=== PATIENT | male | born 1950 | race Caucasian/White ===

== ENCOUNTER 2021-07-12 08:02 | Day surgery (SDC) | payer MEDICARE ==
[2021-07-12] MEDS ORDERED: Lidocaine 1% PF 5 ML VIAL ONE ×2 (08:31→08:42)
[2021-07-12] MEDS ORDERED: Sodium Bicarbonate 2.5 MEQ/5 ML VIAL ONE (08:31)
[2021-07-12] MEDS ORDERED: Albumin 25% 100 ML ONE ×2 (08:34)
[2021-07-12 11:54] LABS: Body Fluid Source Paracentesis Fluid; Clarity Hazy (Clear); Tube # EDTA
[2021-07-12 11:55] LABS: BF Color Yellow
[2021-07-12 12:36] LABS: Lymphocytes 39 %
[2021-07-12 12:37] LABS: BF Segmented Neutrophils 11 %; Cell Count Non Hematic 50 %
== END 2021-07-12 10:00 | disposition home or self-care (01) ==
LOC: CSHULT 08:02
PROVIDERS: ATTEND Physician Assistant Medical
DX: R18.8 Other ascites (principal); K74.60 Unspecified cirrhosis of liver
CPT/HCPCS: 49083; 82042; 84157; 87070; 87076; 87205; 89051; P9047; 88112

== ENCOUNTER 2021-08-19 18:48 | Emergency (ER) | payer MEDICARE ==
[2021-08-19 20:06] LABS: ALT (SGPT) 18 U/L (8-55); AST (SGOT) 29 U/L (5-34); Alkaline Phosphatase 127 U/L (40-110); Anion Gap 12 mmol/L (10-20); BUN (Urea Nitrogen) 15 mg/dL (8.4-25.7); Bilirubin, Total 0.7 mg/dL (0.2-1.2); Calc. Creatinine Clearance 0 mL/min (70-130); Calcium 8.1 mg/dL (7.8-10.44); Carbon Dioxide 24 mmol/L (23-31); Chloride 105 mmol/L (98-107); Globulin 2.1 g/dL (2.4-3.5); Glucose 83 mg/dL (80-115); Potassium 3.2 mmol/L (3.5-5.1); Protein, Total 5.1 g/dL (5.8-8.1); Sodium 138 mmol/L (136-145)
[2021-08-19 20:16] LABS: #Monocytes 0.7 10x3/uL (0.0-1.1); %Basophils 0.2 % (0.0-2.0); %Eosinophils 0.6 % (0.0-6.0); %Monocytes 13.9 % (0.0-10.0); %Neutrophils 76.3 % (40.0-75.0); Hemoglobin 10.7 g/dL (13.5-17.5); Mean Corpuscular HGB CONC 32.5 g/dL (32.0-36.0); Mean Corpuscular Hemoglobin 30.1 pg (27.0-33.0); Mean Corpuscular Volume 92.4 fl (81.2-95.1); Mean Platelet Volume 11.5 fl (7.4-10.4); Platelet Count 58 10x3/uL (150-450); RBC Distribution Width 14.8 % (11.5-14.5); Red Blood Cell (RBC) Count 3.56 10x6/uL (4.32-5.72); White Blood Cell (WBC) Count 5.3 10x3/uL (3.5-10.5)
[2021-08-19 20:33] LABS: Platelet Morphology Comment Appears Decreased; RBC Morphology Normal
== END 2021-08-19 21:14 | disposition left against medical advice (07) ==
LOC: CSHERS 18:48
DX: I95.9 Hypotension, unspecified (principal); R55 Syncope and collapse; R00.1 Bradycardia, unspecified; W19.XXXA Unspecified fall, initial encounter; I10 Essential (primary) hypertension; J44.9 Chronic obstructive pulmonary disease, unspecified; Z87.891 Personal history of nicotine dependence
CPT/HCPCS: 80053; 84484; 85025; 93005

== ENCOUNTER 2021-10-19 12:51 | Outpatient (CLI) | payer MEDICARE | END 2021-10-19 12:52 | disposition home or self-care (01) | LOC: CSHMRI 12:51 | PROVIDERS: ATTEND Internal Medicine Gastroenterology | DX: K70.31 Alcoholic cirrhosis of liver with ascites (principal); R79.89 Other specified abnormal findings of blood chemistry; I85.00 Esophageal varices without bleeding; K76.6 Portal hypertension; I81 Portal vein thrombosis; K80.20 Calculus of gallbladder without cholecystitis without obstruction; N28.1 Cyst of kidney, acquired | CPT/HCPCS: 74183; 82565 ==

== ENCOUNTER 2021-10-23 12:25 | Day surgery (SDC) | payer MEDICARE ==
[2021-10-23] MEDS ORDERED: Sodium Bicarbonate 2.5 MEQ/5 ML VIAL ONE (12:57)
[2021-10-23] MEDS ORDERED: Lidocaine 1% PF 5 ML VIAL ONE (12:57)
[2021-10-23] MEDS ORDERED: Albumin 25% 100 ML ONE (12:57)
[2021-10-23 13:16] LABS: INR-International Normal Ratio 1.2; PTT 29.3 sec (22.0-33.0); Prothrombin Time 12.7 sec (9.5-12.1)
[2021-10-23 13:21] VITALS: TEMP 97.9
[2021-10-23 13:23] LABS: #Eosinphils 0.1 10x3/uL (0.0-0.5); #Monocytes 0.5 10x3/uL (0.0-1.1); #Neutrophils 3.6 10x3/uL (1.5-8.4); %Basophils 0.2 % (0.0-2.0); %Eosinophils 1.1 % (0.0-6.0); %Lymphocytes 10.1 % (18.0-47.0); %Monocytes 10.1 % (0.0-10.0); %Neutrophils 78.1 % (40.0-75.0); Hemoglobin 11.6 g/dL (13.5-17.5); Mean Corpuscular HGB CONC 32.3 g/dL (32.0-36.0); Mean Corpuscular Hemoglobin 29.9 pg (27.0-33.0); Mean Corpuscular Volume 92.5 fl (81.2-95.1); Mean Platelet Volume 11.2 fl (7.4-10.4); Platelet Count 84 10x3/uL (150-450); RBC Distribution Width 15.9 % (11.5-14.5); Red Blood Cell (RBC) Count 3.88 10x6/uL (4.32-5.72); White Blood Cell (WBC) Count 4.7 10x3/uL (3.5-10.5)
== END 2021-10-23 14:08 | disposition home or self-care (01) ==
LOC: CSHULT 12:25
PROVIDERS: ATTEND Internal Medicine Gastroenterology
DX: K70.31 Alcoholic cirrhosis of liver with ascites (principal); R79.89 Other specified abnormal findings of blood chemistry; I85.00 Esophageal varices without bleeding
CPT/HCPCS: 49083; 85025; 85610; 85730; P9047

== ENCOUNTER 2021-11-24 10:41 | Outpatient (CLI) | payer MEDICARE ==
[2021-11-24] MEDS ORDERED: Lidocaine 1% PF 5 ML VIAL ONE (11:53)
[2021-11-24] MEDS ORDERED: Albumin 25% 200 ML ONE (11:53)
[2021-11-24] MEDS ORDERED: Sodium Bicarbonate 2.5 MEQ/5 ML VIAL ONE (11:54)
[2021-11-24 12:05] VITALS: BP 129/60; TEMP 98.4
[2021-11-24 12:08] LABS: #Eosinphils 0.1 10x3/uL (0.0-0.5); #Monocytes 0.6 10x3/uL (0.0-1.1); #Neutrophils 3.6 10x3/uL (1.5-8.4); %Basophils 0.4 % (0.0-2.0); %Eosinophils 1.4 % (0.0-6.0); %Lymphocytes 11.4 % (18.0-47.0); %Monocytes 12.8 % (0.0-10.0); %Neutrophils 73.8 % (40.0-75.0); Hemoglobin 11.6 g/dL (13.5-17.5); Mean Corpuscular Hemoglobin 30.8 pg (27.0-33.0); Mean Corpuscular Volume 90.5 fl (81.2-95.1); Mean Platelet Volume 11.1 fl (7.4-10.4); Platelet Count 82 10x3/uL (150-450); RBC Distribution Width 15.8 % (11.5-14.5); Red Blood Cell (RBC) Count 3.77 10x6/uL (4.32-5.72); White Blood Cell (WBC) Count 4.8 10x3/uL (3.5-10.5)
[2021-11-24 12:18] LABS: INR-International Normal Ratio 1.2; PTT 28.8 sec (22.0-33.0); Prothrombin Time 12.9 sec (9.5-12.1)
== END 2021-11-24 13:03 | disposition home or self-care (01) ==
LOC: CSHULT 10:41
PROVIDERS: ATTEND Internal Medicine Gastroenterology
DX: K70.31 Alcoholic cirrhosis of liver with ascites (principal); R79.89 Other specified abnormal findings of blood chemistry; I85.00 Esophageal varices without bleeding
CPT/HCPCS: 49083; 85025; 85610; 85730; P9047

== ENCOUNTER 2021-12-11 10:07 | Day surgery (SDC) | payer MEDICARE ==
[2021-12-11] MEDS ORDERED: Lidocaine 1% PF 5 ML VIAL ONE (10:44)
[2021-12-11] MEDS ORDERED: Sodium Bicarbonate 2.5 MEQ/5 ML VIAL ONE (10:44)
[2021-12-11] MEDS ORDERED: Albumin 25% 100 ML ONE (10:44)
[2021-12-11 10:58] LABS: #Eosinphils 0.1 10x3/uL (0.0-0.5); #Monocytes 0.8 10x3/uL (0.0-1.1); #Neutrophils 3.6 10x3/uL (1.5-8.4); %Basophils 0.4 % (0.0-2.0); %Eosinophils 1.5 % (0.0-6.0); %Lymphocytes 13.3 % (18.0-47.0); %Monocytes 14.6 % (0.0-10.0); Hemoglobin 11.4 g/dL (13.5-17.5); Mean Corpuscular HGB CONC 33.2 g/dL (32.0-36.0); Mean Corpuscular Hemoglobin 30.2 pg (27.0-33.0); Mean Platelet Volume 11.6 fl (7.4-10.4); Platelet Count 81 10x3/uL (150-450); Red Blood Cell (RBC) Count 3.77 10x6/uL (4.32-5.72); White Blood Cell (WBC) Count 5.2 10x3/uL (3.5-10.5)
[2021-12-11 11:07] LABS: INR-International Normal Ratio 1.2; PTT 28.9 sec (22.0-33.0); Prothrombin Time 12.9 sec (9.5-12.1)
[2021-12-11 12:53] VITALS: TEMP 98
[2021-12-11 13:13] LABS: Body Fluid Source Paracentesis Fluid; Tube # EDTA
[2021-12-11 13:14] LABS: BF Color Yellow; Clarity Hazy (Clear)
[2021-12-11 14:43] LABS: BF Segmented Neutrophils 16 %; Cell Count Non Hematic 68 %; Lymphocytes 16 %
== END 2021-12-11 11:40 | disposition home or self-care (01) ==
LOC: CSHULT 10:07
PROVIDERS: ATTEND Internal Medicine Gastroenterology
DX: K70.31 Alcoholic cirrhosis of liver with ascites (principal); N62 Hypertrophy of breast; I85.00 Esophageal varices without bleeding; K76.9 Liver disease, unspecified
CPT/HCPCS: 49083; 85025; 85610; 85730; 89051; P9047

== ENCOUNTER 2021-12-21 13:30 | Emergency (ER) | payer MEDICARE ==
[2021-12-21 15:19] LABS: #Neutrophils 2.6 10x3/uL (1.5-8.4); %Neutrophils 73.1 % (40.0-75.0)
[2021-12-21 15:20] LABS: ALT (SGPT) 15 U/L (8-55); AST (SGOT) 35 U/L (5-34); Albumin 2.8 g/dL (3.4-4.8); Alkaline Phosphatase 154 U/L (40-110); Anion Gap 13 mmol/L (10-20); BUN (Urea Nitrogen) 16 mg/dL (8.4-25.7); Bilirubin, Total 0.8 mg/dL (0.2-1.2); Calc. Creatinine Clearance 0 mL/min (70-130); Calcium 8.1 mg/dL (7.8-10.44); Carbon Dioxide 22 mmol/L (23-31); Chloride 106 mmol/L (98-107); Globulin 1.8 g/dL (2.4-3.5); Glucose 95 mg/dL (80-115); Potassium 4.3 mmol/L (3.5-5.1); Protein, Total 4.6 g/dL (5.8-8.1); Sodium 137 mmol/L (136-145)
[2021-12-21 15:24] LABS: Bilirubin Neg (Negative); Blood, Urine Negative (Negative); Glucose, Urine (Dipstick) Normal (Negative); Ketone, Urine Negative (Negative); Leukocyte Negative (Negative); Nitrite Negative (Negative); Protein, Urine (Dipstick) Negative (Neg-Trace); Specific Gravity, Urine 1.015 (1.002-1.036); Urobilinogen Normal mg/dL (Less than 2)
[2021-12-21 15:27] LABS: Clarity Clear (Clear)
[2021-12-21 15:31] LABS: Hemoglobin 10.2 g/dL (13.5-17.5); Mean Corpuscular Hemoglobin 30.3 pg (27.0-33.0); Mean Corpuscular Volume 91.7 fl (81.2-95.1); Mean Platelet Volume 11.5 fl (7.4-10.4); Platelet Count 71 10x3/uL (150-450); RBC Distribution Width 15.8 % (11.5-14.5); Red Blood Cell (RBC) Count 3.37 10x6/uL (4.32-5.72); White Blood Cell (WBC) Count 3.6 10x3/uL (3.5-10.5)
[2021-12-21 16:31] LABS: Band 3 % (5-11); Eosinophils 1 % (0-10); Monocytes 15 % (0-10)
[2021-12-21 16:32] LABS: Lymphocytes 6 % (21-51); Neutrophil 73 % (42-75); Reactive Lymphocytes 2 % (0-10)
[2021-12-21 16:33] LABS: Anisocytosis SLIGHT = 6-15 cells (100X) (0-5/hpf); Elliptocytes SLIGHT = 2-5 cells (100X) (0-1/hpf); Ovalocytes MODERATE= 6-15 cells (100X) (0-1/hpf); Poikilocytosis SLIGHT = 6-15 cells (100X) (0-5/hpf)
[2021-12-21 16:34] LABS: Large Platelets SLIGHT; Platelet Morphology Comment Appears Decreased
[2021-12-21 16:35] LABS: MDiff Complete? YES
== END 2021-12-21 16:52 | disposition home or self-care (01) ==
LOC: CSHERS 13:30
DX: R33.9 Retention of urine, unspecified (principal); R18.8 Other ascites; J44.9 Chronic obstructive pulmonary disease, unspecified; I10 Essential (primary) hypertension; Z87.891 Personal history of nicotine dependence
CPT/HCPCS: 36415; 51702; 71045; 80053; 81003; 82140; 84484; 85025; 93005

== ENCOUNTER 2021-12-25 10:17 | Day surgery (SDC) | payer MEDICARE ==
[2021-12-25 10:04] VITALS: BMI 26.5
[~2021-12-25 10:17] MED LIST: Albumin 25% 200 ML ONE; Lidocaine 1% PF 5 ML VIAL ONE; Sodium Bicarbonate 2.5 MEQ/5 ML VIAL ONE
== END 2021-12-25 11:48 | disposition home or self-care (01) ==
LOC: CSHULT 10:17
PROVIDERS: ATTEND Internal Medicine Gastroenterology
DX: K70.31 Alcoholic cirrhosis of liver with ascites (principal); N62 Hypertrophy of breast; I85.00 Esophageal varices without bleeding; K76.9 Liver disease, unspecified; Z79.899 Other long term (current) drug therapy; Z79.82 Long term (current) use of aspirin; Z87.891 Personal history of nicotine dependence
CPT/HCPCS: 49083; P9047

== ENCOUNTER 2021-12-29 23:57 | Emergency (ER) | payer MEDICARE | END 2021-12-30 00:56 | disposition home or self-care (01) | LOC: CSHERS 23:57 | DX: R31.9 Hematuria, unspecified (principal); J44.9 Chronic obstructive pulmonary disease, unspecified; I10 Essential (primary) hypertension; Z87.891 Personal history of nicotine dependence | CPT/HCPCS: 99283 ==

== ENCOUNTER → 2022-01-08 | Day surgery (SDC) | payer MEDICARE ==
[~2022-01-08] MED LIST changes: +Albumin 25% 0 ML ONE; +Albumin 25% 100 ML ONE; -Albumin 25% 200 ML ONE
== END ==
LOC: CSHULT 10:16
PROVIDERS: ATTEND Internal Medicine Gastroenterology
DX: K70.31 Alcoholic cirrhosis of liver with ascites (principal); R79.89 Other specified abnormal findings of blood chemistry
CPT/HCPCS: 49083; P9047

== ENCOUNTER 2022-01-22 10:20 | Day surgery (SDC) | payer MEDICARE ==
[2022-01-22] MEDS ORDERED: Albumin 25% 100 ML ONE (11:05)
[2022-01-22] MEDS ORDERED: Lidocaine 1% PF 5 ML VIAL ONE (11:05)
[2022-01-22] MEDS ORDERED: Sodium Bicarbonate 2.5 MEQ/5 ML VIAL ONE (11:05)
[2022-01-22 11:28] LABS: Hemoglobin 11.1 g/dL (13.5-17.5); Mean Corpuscular HGB CONC 32.6 g/dL (32.0-36.0); Mean Corpuscular Hemoglobin 29.9 pg (27.0-33.0); Mean Corpuscular Volume 91.6 fl (81.2-95.1); Mean Platelet Volume 11.3 fl (7.4-10.4); Platelet Count 74 10x3/uL (150-450); RBC Distribution Width 15.7 % (11.5-14.5); Red Blood Cell (RBC) Count 3.71 10x6/uL (4.32-5.72); White Blood Cell (WBC) Count 3.9 10x3/uL (3.5-10.5)
[2022-01-22 11:33] LABS: INR-International Normal Ratio 1.2; PTT 29.9 sec (22.0-33.0); Prothrombin Time 12.7 sec (9.5-12.1)
== END 2022-01-22 11:54 | disposition home or self-care (01) ==
LOC: CSHULT 10:20
PROVIDERS: ATTEND Internal Medicine Gastroenterology
PROC: 0W9G3ZZ Drainage of Peritoneal Cavity, Percutaneous Approach (ICD-10-PCS; principal; 2022-01-22)
DX: K70.31 Alcoholic cirrhosis of liver with ascites (principal); Z79.82 Long term (current) use of aspirin; Z79.899 Other long term (current) drug therapy
CPT/HCPCS: 49083; 85027; 85610; 85730; P9047

== ENCOUNTER → 2022-02-05 | Day surgery (SDC) | payer MEDICARE ==
[~2022-02-05] MED LIST changes: -Albumin 25% 0 ML ONE; -Albumin 25% 100 ML ONE
[2022-02-05 11:34] VITALS: BP 146/68; TEMP 98.1
== END ==
LOC: CSHULT 10:20
PROVIDERS: ATTEND Internal Medicine Gastroenterology
PROC: 0W9G3ZZ Drainage of Peritoneal Cavity, Percutaneous Approach (ICD-10-PCS; principal; 2022-02-05)
DX: R18.8 Other ascites (principal)
CPT/HCPCS: 49083

== ENCOUNTER 2022-02-20 10:10 | Day surgery (SDC) | payer MEDICARE ==
[2022-02-20] MEDS ORDERED: Albumin 25% 100 ML ONE ×2 (10:46)
[2022-02-20] MEDS ORDERED: Sodium Bicarbonate 2.5 MEQ/5 ML VIAL ONE (10:46)
[2022-02-20] MEDS ORDERED: Lidocaine 1% PF 5 ML VIAL ONE (10:46)
[2022-02-20 11:42] VITALS: BP 166/74; TEMP 98.2
== END 2022-02-20 12:17 | disposition home or self-care (01) ==
LOC: CSHULT 10:10
PROVIDERS: ATTEND Internal Medicine Gastroenterology
PROC: 0W9G3ZZ Drainage of Peritoneal Cavity, Percutaneous Approach (ICD-10-PCS; principal; 2022-02-20)
DX: K70.31 Alcoholic cirrhosis of liver with ascites (principal)
CPT/HCPCS: 49083; P9047

== ENCOUNTER 2022-03-05 10:11 | Day surgery (SDC) | payer MEDICARE ==
[2022-03-05 10:42] VITALS: BP 155/76; TEMP 98.1
[2022-03-05] MEDS ORDERED: Albumin 25% 100 ML ONE (10:48)
[2022-03-05] MEDS ORDERED: Lidocaine 1% PF 5 ML VIAL ONE (10:48)
[2022-03-05] MEDS ORDERED: Sodium Bicarbonate 2.5 MEQ/5 ML VIAL ONE (10:48)
[2022-03-05 11:06] LABS: INR-International Normal Ratio 1.2; PTT 25.3 sec (22.0-33.0); Prothrombin Time 12.7 sec (9.5-12.1)
[2022-03-05 11:07] LABS: Hemoglobin 11.3 g/dL (13.5-17.5); Mean Corpuscular HGB CONC 32.4 g/dL (32.0-36.0); Mean Corpuscular Hemoglobin 30.2 pg (27.0-33.0); Mean Corpuscular Volume 93.3 fl (81.2-95.1); Mean Platelet Volume 11.9 fl (7.4-10.4); RBC Distribution Width 17.2 % (11.5-14.5); Red Blood Cell (RBC) Count 3.74 10x6/uL (4.32-5.72); White Blood Cell (WBC) Count 6.6 10x3/uL (3.5-10.5)
[2022-03-05 11:08] LABS: Platelet Count 51 10x3/uL (150-450)
== END 2022-03-05 11:38 | disposition home or self-care (01) ==
LOC: CSHULT 10:11
PROVIDERS: ATTEND Internal Medicine Gastroenterology
PROC: 0W9G3ZZ Drainage of Peritoneal Cavity, Percutaneous Approach (ICD-10-PCS; principal; 2022-03-05)
DX: R18.8 Other ascites (principal)
CPT/HCPCS: 49083; 85027; 85610; 85730; P9047

== ENCOUNTER 2022-03-12 00:33 | Emergency (ER) | payer MEDICARE ==
[2022-03-12] MEDS ORDERED: Ondansetron PF 4 MG/2 ML Vial ONE (01:10)
[2022-03-12] MEDS ORDERED: Morphine 4 MG/ML VIAL ONE ×2 (01:10→05:00)
[2022-03-12 01:48] LABS: Bilirubin Neg (Negative); Blood, Urine Negative (Negative); Clarity Clear (Clear); Glucose, Urine (Dipstick) Normal (Negative); Ketone, Urine 5 mg/dL (Negative); Leukocyte Negative (Negative); Nitrite Negative (Negative); Protein, Urine (Dipstick) 15 mg/dl (Neg-Trace); Specific Gravity, Urine 1.015 (1.002-1.036)
[2022-03-12 01:57] LABS: ALT (SGPT) 30 U/L (8-55); AST (SGOT) 38 U/L (5-34); Albumin 2.9 g/dL (3.4-4.8); Alkaline Phosphatase 188 U/L (40-110); Anion Gap 15 mmol/L (10-20); BUN (Urea Nitrogen) 15 mg/dL (8.4-25.7); Bilirubin, Total 1.2 mg/dL (0.2-1.2); CK (CPK) 84 U/L (30-200); Calc. Creatinine Clearance 0 mL/min (70-130); Carbon Dioxide 20 mmol/L (23-31); Chloride 105 mmol/L (98-107); Estimated GFR 61; Globulin 1.8 g/dL (2.4-3.5); Glucose 207 mg/dL (83-110); Lipase 12 U/L (8-78); Potassium 4.1 mmol/L (3.5-5.1); Protein, Total 4.7 g/dL (5.8-8.1); Sodium 136 mmol/L (136-145)
[2022-03-12 02:37] LABS: #Eosinphils 0.1 10x3/uL (0.0-0.5); #Monocytes 0.6 10x3/uL (0.0-1.1); #Neutrophils 5.1 10x3/uL (1.5-8.4); %Basophils 0.2 % (0.0-2.0); %Eosinophils 1.1 % (0.0-6.0); %Lymphocytes 5.5 % (18.0-47.0); %Monocytes 9.7 % (0.0-10.0); %Neutrophils 82.4 % (40.0-75.0); Hemoglobin 10.7 g/dL (13.5-17.5); Mean Corpuscular Hemoglobin 31.7 pg (27.0-33.0); Mean Corpuscular Volume 93.2 fl (81.2-95.1); Mean Platelet Volume 12.5 fl (7.4-10.4); Platelet Count 46 10x3/uL (150-450); RBC Distribution Width 17.2 % (11.5-14.5); Red Blood Cell (RBC) Count 3.38 10x6/uL (4.32-5.72); White Blood Cell (WBC) Count 6.2 10x3/uL (3.5-10.5)
[2022-03-12 06:04] LABS: INR-International Normal Ratio 1.1; PTT 27.4 sec (22.0-33.0)
[2022-03-12 06:10] LABS: SARS-CoV-2 NAA Rapid Test Not Detected (NotDetected)
[2022-03-12] MEDS ORDERED: Piperacillin/Tazobactam 4.5 GM VIAL ONE (06:18)
[2022-03-12] MEDS ORDERED: Iopamidol 300 61% 100 ML VIAL FS ONE (12:43)
== END 2022-03-12 08:22 | disposition short-term general hospital (02) ==
LOC: CSHERS 00:33
DX: K74.69 Other cirrhosis of liver (principal); Z87.891 Personal history of nicotine dependence; I10 Essential (primary) hypertension; Z20.822 Contact with and (suspected) exposure to COVID-19
CPT/HCPCS: 36415; 74177; 80053; 81003; 82550; 83690; 84484; 85025; 85610; 85730; 93005; J2270; J2405; J2543; U0002

== ENCOUNTER 2022-03-19 10:29 | Day surgery (SDC) | payer MEDICARE ==
[2022-03-19] MEDS ORDERED: Albumin 25% 100 ML ONE (11:04)
[2022-03-19] MEDS ORDERED: Lidocaine 1% PF 5 ML VIAL ONE (11:04)
[2022-03-19] MEDS ORDERED: Sodium Bicarbonate 2.5 MEQ/5 ML VIAL ONE (11:04)
[2022-03-19 11:14] VITALS: BP 121/82; TEMP 98.2
== END 2022-03-19 12:10 | disposition home or self-care (01) ==
LOC: CSHULT 10:29
PROVIDERS: ATTEND Internal Medicine Gastroenterology
PROC: 0W9G3ZZ Drainage of Peritoneal Cavity, Percutaneous Approach (ICD-10-PCS; principal; 2022-03-19)
DX: R18.8 Other ascites (principal); K74.60 Unspecified cirrhosis of liver
CPT/HCPCS: 49083; P9047

== ENCOUNTER 2022-04-02 10:22 | Day surgery (SDC) | payer MEDICARE ==
[2022-04-02] MEDS ORDERED: Lidocaine 1% PF 5 ML VIAL ONE (10:33)
[2022-04-02] MEDS ORDERED: Albumin 25% 100 ML ONE (10:33)
[2022-04-02] MEDS ORDERED: Sodium Bicarbonate 2.5 MEQ/5 ML VIAL ONE (10:33)
[2022-04-02 10:46] VITALS: BP 166/81; TEMP 97.4
== END 2022-04-02 11:40 | disposition home or self-care (01) ==
LOC: CSHULT 10:22
PROVIDERS: ATTEND Internal Medicine Gastroenterology
PROC: 0W9G3ZZ Drainage of Peritoneal Cavity, Percutaneous Approach (ICD-10-PCS; principal; 2022-04-02)
DX: R18.8 Other ascites (principal)
CPT/HCPCS: 49083; P9047

== ENCOUNTER 2022-04-16 10:10 | Day surgery (SDC) | payer MEDICARE ==
[2022-04-12 07:38] VITALS: BMI 26.5
[2022-04-16] MEDS ORDERED: Albumin 25% 100 ML ONE (10:39)
[2022-04-16] MEDS ORDERED: Sodium Bicarbonate 2.5 MEQ/5 ML VIAL ONE (10:44)
[2022-04-16] MEDS ORDERED: Lidocaine 1% PF 5 ML VIAL ONE (10:44)
[2022-04-16 10:46] VITALS: BP 154/72; TEMP 97.4
[2022-04-16 10:47] LABS: #Eosinphils 0.1 10x3/uL (0.0-0.5); #Monocytes 0.6 10x3/uL (0.0-1.1); %Basophils 0.2 % (0.0-2.0); %Eosinophils 2.2 % (0.0-6.0); %Lymphocytes 12.1 % (18.0-47.0); %Monocytes 11.3 % (0.0-10.0); %Neutrophils 73.3 % (40.0-75.0); Hemoglobin 10.5 g/dL (13.5-17.5); Mean Corpuscular HGB CONC 31.7 g/dL (32.0-36.0); Mean Corpuscular Hemoglobin 31.4 pg (27.0-33.0); Mean Corpuscular Volume 99.1 fl (81.2-95.1); Mean Platelet Volume 11.5 fl (7.4-10.4); Platelet Count 69 10x3/uL (150-450); RBC Distribution Width 16.7 % (11.5-14.5); Red Blood Cell (RBC) Count 3.34 10x6/uL (4.32-5.72); White Blood Cell (WBC) Count 5.5 10x3/uL (3.5-10.5)
[2022-04-16 10:51] LABS: INR-International Normal Ratio 1.3; Prothrombin Time 14.4 sec (9.5-12.1)
== END 2022-04-16 11:45 | disposition home or self-care (01) ==
LOC: CSHULT 10:10
PROVIDERS: ATTEND Internal Medicine Gastroenterology
DX: R18.8 Other ascites (principal)
CPT/HCPCS: 49083; 85025; 85610; P9047

== ENCOUNTER 2022-04-30 10:14 | Day surgery (SDC) | payer MEDICARE ==
[2022-04-30] MEDS ORDERED: Lidocaine 1% PF 5 ML VIAL ONE (10:30)
[2022-04-30] MEDS ORDERED: Sodium Bicarbonate 2.5 MEQ/5 ML VIAL ONE (10:30)
[2022-04-30] MEDS ORDERED: Albumin 25% 0 ML ONE (10:31)
[2022-04-30 10:42] VITALS: BP 144/69; TEMP 97.8
[2022-04-30 11:05] LABS: ALT (SGPT) 12 U/L (8-55); AST (SGOT) 36 U/L (5-34); Albumin 2.6 g/dL (3.4-4.8); Alkaline Phosphatase 210 U/L (40-110); Anion Gap 13 mmol/L (10-20); BUN (Urea Nitrogen) 15 mg/dL (8.4-25.7); Bilirubin, Total 1.5 mg/dL (0.2-1.2); Calc. Creatinine Clearance 59 mL/min (70-130); Calcium 8.1 mg/dL (7.8-10.44); Carbon Dioxide 24 mmol/L (23-31); Chloride 100 mmol/L (98-107); Estimated GFR 56; Globulin 2.3 g/dL (2.4-3.5); Glucose 153 mg/dL (83-110); Potassium 4.8 mmol/L (3.5-5.1); Protein, Total 4.9 g/dL (5.8-8.1); Sodium 132 mmol/L (136-145)
[2022-04-30] MEDS ORDERED: Albumin 25% 100 ML ONE (11:16)
== END 2022-04-30 11:29 | disposition home or self-care (01) ==
LOC: CSHULT 10:14
PROVIDERS: ATTEND Internal Medicine Gastroenterology
PROC: 0W9G3ZZ Drainage of Peritoneal Cavity, Percutaneous Approach (ICD-10-PCS; principal; 2022-04-30)
DX: K70.31 Alcoholic cirrhosis of liver with ascites (principal)
CPT/HCPCS: 49083; 80053; 82105; P9047

== ENCOUNTER 2022-05-14 09:48 | Day surgery (SDC) | payer MEDICARE ==
[2022-05-14] MEDS ORDERED: Albumin 25% 200 ML ONE (10:25)
[2022-05-14] MEDS ORDERED: Sodium Bicarbonate 2.5 MEQ/5 ML VIAL ONE (10:25)
[2022-05-14 10:32] VITALS: BP 149/73; TEMP 97.2; BMI 26.4
== END 2022-05-14 11:49 | disposition home or self-care (01) ==
LOC: CSHULT 09:48
PROVIDERS: ATTEND Internal Medicine Gastroenterology
PROC: 0W9G3ZZ Drainage of Peritoneal Cavity, Percutaneous Approach (ICD-10-PCS; principal; 2022-05-14)
DX: R18.8 Other ascites (principal)
CPT/HCPCS: 49083; P9047

== ENCOUNTER 2022-05-28 09:52 | Day surgery (SDC) | payer MEDICARE ==
[2022-05-28] MEDS ORDERED: Albumin 25% 0 ML ONE (10:49)
[2022-05-28] MEDS ORDERED: Albumin 25% 100 ML ONE (10:49)
[2022-05-28] MEDS ORDERED: Sodium Bicarbonate 2.5 MEQ/5 ML VIAL ONE (10:49)
[2022-05-28] MEDS ORDERED: Lidocaine 4% PF 5 ML AMP ONE (10:50)
[2022-05-28 11:18] VITALS: BP 135/72; TEMP 98.8
[2022-05-28 11:55] LABS: ALT (SGPT) 17 U/L (8-55); AST (SGOT) 41 U/L (5-34); Albumin 2.7 g/dL (3.4-4.8); Alkaline Phosphatase 248 U/L (40-110); Anion Gap 11 mmol/L (10-20); BUN (Urea Nitrogen) 27 mg/dL (8.4-25.7); Calc. Creatinine Clearance 0 mL/min (70-130); Calcium 8.4 mg/dL (7.8-10.44); Carbon Dioxide 24 mmol/L (23-31); Chloride 104 mmol/L (98-107); Estimated GFR 47; Globulin 2.2 g/dL (2.4-3.5); Glucose 127 mg/dL (83-110); INR-International Normal Ratio 1.2; PTT 30.4 sec (22.0-33.0); Potassium 4.4 mmol/L (3.5-5.1); Protein, Total 4.9 g/dL (5.8-8.1); Prothrombin Time 12.4 sec (9.5-12.1); Sodium 135 mmol/L (136-145)
[2022-05-28 11:56] LABS: Mean Platelet Volume 11.8 fl (7.4-10.4); Platelet Count 88 10x3/uL (150-450)
[2022-05-28 11:57] LABS: Hemoglobin 8.5 g/dL (13.5-17.5); Mean Corpuscular HGB CONC 32.4 g/dL (32.0-36.0); Mean Corpuscular Hemoglobin 30.7 pg (27.0-33.0); Mean Corpuscular Volume 94.6 fl (81.2-95.1); RBC Distribution Width 15.6 % (11.5-14.5); Red Blood Cell (RBC) Count 2.77 10x6/uL (4.32-5.72)
[2022-05-28 13:08] LABS: MDiff Complete? YES
[2022-05-28 13:11] LABS: Eosinophils 7 % (0-10); Lymphocytes 10 % (21-51); Monocytes 14 % (0-10); Neutrophil 69 % (42-75)
[2022-05-28 13:13] LABS: Platelet Morphology Comment Appears Decreased
[2022-05-28 13:22] LABS: Ovalocytes SLIGHT = 2-5 cells (100X) (0-1/hpf)
== END 2022-05-28 11:50 | disposition home or self-care (01) ==
LOC: CSHULT 09:52
PROVIDERS: ATTEND Internal Medicine Gastroenterology
PROC: 0W9G30Z Drainage of Peritoneal Cavity with Drainage Device, Percutaneous Approach (ICD-10-PCS; principal; 2022-05-28)
DX: R18.8 Other ascites (principal)
CPT/HCPCS: 49083; 80053; 85025; 85610; 85730; P9047

== ENCOUNTER 2022-06-11 10:02 | Day surgery (SDC) | payer MEDICARE ==
[2022-06-11] MEDS ORDERED: Lidocaine 1% PF 5 ML VIAL ONE (10:31)
[2022-06-11] MEDS ORDERED: Sodium Bicarbonate 2.5 MEQ/5 ML VIAL ONE (10:31)
[2022-06-11] MEDS ORDERED: Albumin 25% 100 ML ONE (11:12)
[2022-06-11 13:05] VITALS: BP 120/64; TEMP 97.4
== END 2022-06-11 12:00 | disposition home or self-care (01) ==
LOC: CSHULT 10:02
PROVIDERS: ATTEND Internal Medicine Gastroenterology
PROC: 0W9G30Z Drainage of Peritoneal Cavity with Drainage Device, Percutaneous Approach (ICD-10-PCS; principal; 2022-06-11)
DX: R18.8 Other ascites (principal)
CPT/HCPCS: 49083; P9047

== ENCOUNTER → 2022-07-09 | Day surgery (SDC) | payer MEDICARE ==
[~2022-07-09] MED LIST changes: +Albumin 25% 100 ML ONE
== END ==
LOC: CSHULT 10:17
PROVIDERS: ATTEND Internal Medicine Gastroenterology
PROC: 0W9G3ZZ Drainage of Peritoneal Cavity, Percutaneous Approach (ICD-10-PCS; principal; 2022-07-09)
DX: K70.31 Alcoholic cirrhosis of liver with ascites (principal); R79.89 Other specified abnormal findings of blood chemistry; I85.00 Esophageal varices without bleeding; I10 Essential (primary) hypertension; J44.9 Chronic obstructive pulmonary disease, unspecified
CPT/HCPCS: 49083; P9047

== ENCOUNTER 2022-07-10 23:45 | Inpatient (IN) | payer MEDICARE ==
[2022-07-11 00:26] LABS: Mean Corpuscular HGB CONC 33.2 g/dL (32.0-36.0); Mean Corpuscular Hemoglobin 30.7 pg (27.0-33.0); Mean Corpuscular Volume 92.5 fl (81.2-95.1); Mean Platelet Volume 11.5 fl (7.4-10.4); Platelet Count 67 10x3/uL (150-450); RBC Distribution Width 16.9 % (11.5-14.5); Red Blood Cell (RBC) Count 2.28 10x6/uL (4.32-5.72); White Blood Cell (WBC) Count 2.9 10x3/uL (3.5-10.5)
[2022-07-11 00:32] LABS: MDiff Complete? YES; Platelet Morphology Comment Appears Decreased
[2022-07-11 00:45] LABS: ALT (SGPT) 30 U/L (8-55); AST (SGOT) 89 U/L (5-34); Albumin 2.9 g/dL (3.4-4.8); Alkaline Phosphatase 214 U/L (40-110); Anion Gap 17 mmol/L (10-20); BUN (Urea Nitrogen) 80 mg/dL (8.4-25.7); Bilirubin, Total 0.5 mg/dL (0.2-1.2); Calc. Creatinine Clearance 0 mL/min (70-130); Calcium 7.8 mg/dL (7.8-10.44); Estimated GFR 8; Globulin 1.9 g/dL (2.4-3.5); Glucose 207 mg/dL (83-110); Potassium 4.7 mmol/L (3.5-5.1); Protein, Total 4.8 g/dL (5.8-8.1)
[2022-07-11 00:48] LABS: Carbon Dioxide 17 mmol/L (23-31); Chloride 105 mmol/L (98-107); Sodium 134 mmol/L (136-145)
[2022-07-11] MEDS ORDERED: Octreotide Acetate 1,250 MCG in Sodium Chloride 0.9% 250 ML 250 ML IVPB SCH (01:30)
[2022-07-11] MEDS ORDERED: Pantoprazole 40 MG VIAL ONE (01:38)
[2022-07-11 02:41] VITALS: BMI 23.0
[2022-07-11 03:27] LABS: Band 3 % (5-11); Lymphocytes 6 % (21-51); Monocytes 4 % (0-10); Neutrophil 87 % (42-75)
[2022-07-11] MEDS ORDERED: Albuterol Sulfate 2.5 mg/3 ml Neb NEB PRN (05:12)
[2022-07-11] MEDS ORDERED: Sodium Chloride 0.9% 1,000 ML IV SCH (05:30)
[2022-07-11 05:42] LABS: Hemoglobin 6.9 g/dL (13.5-17.5); Mean Corpuscular HGB CONC 33.5 g/dL (32.0-36.0); Mean Corpuscular Hemoglobin 30.9 pg (27.0-33.0); Mean Corpuscular Volume 92.4 fl (81.2-95.1); Mean Platelet Volume 12.3 fl (7.4-10.4); Platelet Count 57 10x3/uL (150-450); RBC Distribution Width 16.9 % (11.5-14.5); Red Blood Cell (RBC) Count 2.23 10x6/uL (4.32-5.72); White Blood Cell (WBC) Count 2.1 10x3/uL (3.5-10.5)
[2022-07-11] MEDS: Albumin 25% 25 GM/100 ML BOT IVPB SCH ×3 (05:47→20:59)
[2022-07-11] MEDS: Midodrine HCl 2.5 MG TAB PO SCH ×3 (05:49→18:17)
[2022-07-11 06:19] LABS: MDiff Complete? YES; Platelet Morphology Comment Appears Decreased
[2022-07-11 06:22] LABS: Band 2 % (5-11); Lymphocytes 7 % (21-51); Monocytes 2 % (0-10); Neutrophil 89 % (42-75)
[2022-07-11 08:03] LABS: Bilirubin Neg (Negative); Blood, Urine Negative (Negative); Clarity Clear (Clear); Glucose, Urine (Dipstick) Normal (Negative); Ketone, Urine Negative (Negative); Leukocyte Negative (Negative); Nitrite Negative (Negative); Protein, Urine (Dipstick) Negative (Neg-Trace); Specific Gravity, Urine 1.015 (1.005-1.030); Urobilinogen Normal mg/dL (Less than 2)
[2022-07-11 08:23] LABS: Bacteria/HPF Rare-Few HPF (None Seen); Epithelial Cast 0-3 LPF (None Seen); RBC/HPF 0-3 HPF (0-3); Squamous Epithelial 0-3 HPF (0-3); WBC/HPF 0-3 HPF (0-3); White Blood Cell Cast 0-3 LPF (None Seen)
[2022-07-11 08:24] LABS: Calcium Oxalate Crystals 1+ HPF (None Seen)
[2022-07-11] MEDS ORDERED: Furosemide 20 MG TAB PO SCH (09:00)
[2022-07-11] MEDS: Pregabalin 75 MG CAP PO SCH ×2 (11:01→21:00)
[2022-07-11] MEDS: Tamsulosin HCl 0.4 MG CAP PO SCH (11:03)
[2022-07-11] MEDS: Montelukast Sodium 10 mg Tablet PO SCH (11:03)
[2022-07-11] MEDS: Senokot S 8.6-50 MG TAB PO SCH ×2 (11:03→20:59)
[2022-07-11] MEDS: Stress 600 With Zinc 1 TAB PO SCH (11:03)
[2022-07-11] MEDS: Pantoprazole 40 MG VIAL IVP SCH ×2 (11:08→21:00)
[2022-07-11] MEDS: Atorvastatin Calcium 20 MG TAB PO SCH (11:08)
[2022-07-11] MEDS: Acetaminophen 325 MG TAB PO PRN (12:34)
[2022-07-11] MEDS ORDERED: Lidocaine 1% PF 5 ML VIAL ONE (14:52)
[2022-07-11] MEDS ORDERED: Sodium Bicarbonate 2.5 MEQ/5 ML VIAL ONE (14:52)
[2022-07-11 15:55] LABS: BF Color Yellow; Body Fluid Source Ascites Body Fluid; Clarity Cloudy/Turbid (Clear); Tube # EDTA
[2022-07-11] MEDS: Sodium Chloride 0.9% 1,000 ML IV SCH (16:29)
[2022-07-11 16:34] LABS: Cell Count Non Hematic 87 %; Lymphocytes 13 %
[2022-07-11 17:08] LABS: BF Segmented Neutrophils 0 %
[2022-07-11] MEDS: Thiamine 100 MG TAB PO SCH (20:59)
[2022-07-12 04:46] LABS: #Monocytes 0.1 10x3/uL (0.0-1.1); #Neutrophils 2.2 10x3/uL (1.5-8.4); %Lymphocytes 4.9 % (18.0-47.0); %Monocytes 4.9 % (0.0-10.0); %Neutrophils 89.4 % (40.0-75.0); Hemoglobin 6.8 g/dL (13.5-17.5); Mean Corpuscular HGB CONC 33.5 g/dL (32.0-36.0); Mean Corpuscular Hemoglobin 30.6 pg (27.0-33.0); Mean Corpuscular Volume 91.4 fl (81.2-95.1); Mean Platelet Volume 11.5 fl (7.4-10.4); Platelet Count 45 10x3/uL (150-450); RBC Distribution Width 16.5 % (11.5-14.5); Red Blood Cell (RBC) Count 2.22 10x6/uL (4.32-5.72); White Blood Cell (WBC) Count 2.5 10x3/uL (3.5-10.5)
[2022-07-12 04:53] LABS: Anion Gap 15 mmol/L (10-20); BUN (Urea Nitrogen) 82 mg/dL (8.4-25.7); Calc. Creatinine Clearance 11 mL/min (70-130); Calcium 7.4 mg/dL (7.8-10.44); Carbon Dioxide 16 mmol/L (23-31); Chloride 108 mmol/L (98-107); Estimated GFR 8; Glucose 140 mg/dL (83-110); Potassium 5.2 mmol/L (3.5-5.1); Sodium 134 mmol/L (136-145)
[2022-07-12] MEDS: Sodium Chloride 0.9% 1,000 ML IV SCH ×2 (05:20→17:48)
[2022-07-12] MEDS: Albumin 25% 25 GM/100 ML BOT IVPB SCH ×3 (05:40→21:25)
[2022-07-12] MEDS: Midodrine HCl 2.5 MG TAB PO SCH ×3 (06:31→17:48)
[2022-07-12] MEDS ORDERED: Albumin 25% 25 GM/100 ML BOT IVPB SCH (10:15)
[2022-07-12] MEDS: Pregabalin 75 MG CAP PO SCH ×2 (10:42→21:25)
[2022-07-12] MEDS: Senokot S 8.6-50 MG TAB PO SCH ×2 (10:42→21:26)
[2022-07-12] MEDS: Montelukast Sodium 10 mg Tablet PO SCH (10:43)
[2022-07-12] MEDS: Atorvastatin Calcium 20 MG TAB PO SCH (10:43)
[2022-07-12] MEDS: Tamsulosin HCl 0.4 MG CAP PO SCH (10:44)
[2022-07-12] MEDS: Stress 600 With Zinc 1 TAB PO SCH (10:44)
[2022-07-12] MEDS: Pantoprazole 40 MG VIAL IVP SCH ×2 (10:44→21:26)
[2022-07-12] MEDS: CHOLECALCIFEROL 1250 MCG PO SCH (11:44)
[2022-07-12] MEDS: [UNRECOGNIZED DRUG - OTHER] PO SCH (11:44)
[2022-07-12] MEDS: Octreotide Acetate 1,250 MCG in Sodium Chloride 0.9% 250 ML 250 ML IVPB SCH (17:47)
[2022-07-12] MEDS: Thiamine 100 MG TAB PO SCH (21:26)
[2022-07-13 05:25] LABS: ALT (SGPT) 24 U/L (8-55); AST (SGOT) 52 U/L (5-34); Albumin 3.5 g/dL (3.4-4.8); Alkaline Phosphatase 119 U/L (40-110); Anion Gap 15 mmol/L (10-20); BUN (Urea Nitrogen) 83 mg/dL (8.4-25.7); Bilirubin, Total 0.9 mg/dL (0.2-1.2); Calc. Creatinine Clearance 10 mL/min (70-130); Calcium 7.7 mg/dL (7.8-10.44); Carbon Dioxide 15 mmol/L (23-31); Chloride 111 mmol/L (98-107); Estimated GFR 8; Globulin 1.1 g/dL (2.4-3.5); Glucose 139 mg/dL (83-110); Potassium 4.5 mmol/L (3.5-5.1); Protein, Total 4.6 g/dL (5.8-8.1); Sodium 136 mmol/L (136-145)
[2022-07-13 05:31] LABS: HBSAg Index 0.22 S/CO (0-0.99); Hep B Surf Ag Non-Reactive S/CO (NonReactive); INR-International Normal Ratio 1.6; PTT 56.5 sec (22.0-33.0)
[2022-07-13] MEDS: Albumin 25% 25 GM/100 ML BOT IVPB SCH ×2 (05:47→15:16)
[2022-07-13] MEDS: Midodrine HCl 2.5 MG TAB PO SCH ×3 (05:48→20:13)
[2022-07-13] MEDS: Sodium Chloride 0.9% 1,000 ML IV SCH (05:48)
[2022-07-13] MEDS ORDERED: EPOETIN ALFA-EPBX (ESRD) 10,000 UNIT/ML VIAL IVP PRN (08:54)
[2022-07-13] MEDS: Stress 600 With Zinc 1 TAB PO SCH (09:37)
[2022-07-13] MEDS: Pantoprazole 40 MG VIAL IVP SCH ×2 (09:37→20:53)
[2022-07-13] MEDS: Pregabalin 75 MG CAP PO SCH ×2 (09:38→20:52)
[2022-07-13] MEDS: Tamsulosin HCl 0.4 MG CAP PO SCH (09:39)
[2022-07-13] MEDS: Atorvastatin Calcium 20 MG TAB PO SCH (09:39)
[2022-07-13] MEDS: Senokot S 8.6-50 MG TAB PO SCH ×2 (09:39→20:54)
[2022-07-13] MEDS: Montelukast Sodium 10 mg Tablet PO SCH (09:39)
[2022-07-13 10:52] LABS: Hemoglobin 8.7 g/dL (13.5-17.5); Mean Corpuscular Hemoglobin 31.1 pg (27.0-33.0); Mean Corpuscular Volume 91.4 fl (81.2-95.1); Mean Platelet Volume 11.8 fl (7.4-10.4); Platelet Count 48 10x3/uL (150-450); RBC Distribution Width 16.5 % (11.5-14.5)
[2022-07-13 11:00] LABS: Anion Gap 17 mmol/L (10-20); BUN (Urea Nitrogen) 83 mg/dL (8.4-25.7); Calc. Creatinine Clearance 10 mL/min (70-130); Calcium 8.1 mg/dL (7.8-10.44); Carbon Dioxide 14 mmol/L (23-31); Chloride 112 mmol/L (98-107); Estimated GFR 8; Glucose 99 mg/dL (83-110); Sodium 138 mmol/L (136-145)
[2022-07-13 11:23] LABS: MDiff Complete? YES
[2022-07-13 11:26] LABS: Lymphocytes 3 % (21-51); Monocytes 8 % (0-10); Neutrophil 89 % (42-75)
[2022-07-13 11:30] LABS: Anisocytosis SLIGHT = 6-15 cells (100X) (0-5/hpf)
[2022-07-13 11:31] LABS: Platelet Morphology Comment Appears Decreased
[2022-07-13 18:56] LABS: HBSAB Concentration Less than 8.00 mIU/mL; Hep B Core Total Ab Non-Reactive (NonReactive); Hep B Core Total Index 0.07 S/CO (0-0.79); Hep B Surf AB Non-Reactive (NonReactive); Hep C IgG Ab Non-Reactive (NonReactive); Hep C Index 0.03 S/CO (0-0.79)
[2022-07-13] MEDS: Thiamine 100 MG TAB PO SCH (20:53)
[2022-07-13] MEDS ORDERED: Albumin 25% 25 GM/100 ML BOT IVPB SCH (21:00)
[2022-07-14] MEDS: Octreotide Acetate 1,250 MCG in Sodium Chloride 0.9% 250 ML 250 ML IVPB SCH (01:03)
[2022-07-14] MEDS: Albumin 25% 25 GM/100 ML BOT IVPB SCH ×4 (03:05→22:44)
[2022-07-14 04:25] LABS: Anion Gap 16 mmol/L (10-20); BUN (Urea Nitrogen) 88 mg/dL (8.4-25.7); Calc. Creatinine Clearance 10 mL/min (70-130); Calcium 7.8 mg/dL (7.8-10.44); Carbon Dioxide 14 mmol/L (23-31); Chloride 113 mmol/L (98-107); Estimated GFR 8; Glucose 128 mg/dL (83-110); Potassium 4.7 mmol/L (3.5-5.1); Sodium 138 mmol/L (136-145)
[2022-07-14 04:41] LABS: #Monocytes 0.2 10x3/uL (0.0-1.1); #Neutrophils 2.2 10x3/uL (1.5-8.4); %Lymphocytes 5.9 % (18.0-47.0); %Monocytes 5.9 % (0.0-10.0); Hemoglobin 7.6 g/dL (13.5-17.5); Mean Corpuscular HGB CONC 33.3 g/dL (32.0-36.0); Mean Corpuscular Hemoglobin 30.2 pg (27.0-33.0); Mean Corpuscular Volume 90.5 fl (81.2-95.1); Mean Platelet Volume 12.2 fl (7.4-10.4); Platelet Count 41 10x3/uL (150-450); RBC Distribution Width 16.6 % (11.5-14.5); Red Blood Cell (RBC) Count 2.52 10x6/uL (4.32-5.72); White Blood Cell (WBC) Count 2.5 10x3/uL (3.5-10.5)
[2022-07-14] MEDS: Midodrine HCl 2.5 MG TAB PO SCH ×3 (06:19→20:19)
[2022-07-14] MEDS ORDERED: Bupivacaine 0.25% HCL 30 ML VIAL ONE (07:17)
[2022-07-14] MEDS ORDERED: EPINEPHrine 1 MG/ML AMP ONE (07:18)
[2022-07-14] MEDS: Atorvastatin Calcium 20 MG TAB PO SCH (08:00)
[2022-07-14] MEDS: Tamsulosin HCl 0.4 MG CAP PO SCH (08:00)
[2022-07-14] MEDS: Stress 600 With Zinc 1 TAB PO SCH (08:00)
[2022-07-14] MEDS: Pregabalin 75 MG CAP PO SCH ×2 (08:00→22:44)
[2022-07-14] MEDS: Montelukast Sodium 10 mg Tablet PO SCH (08:00)
[2022-07-14] MEDS ORDERED: Fentanyl 100 MCG/2 ML VIAL ONE ×2 (08:21→08:39)
[2022-07-14] MEDS ORDERED: CEFAZOLIN 1 GM VIAL ONE (08:41)
[2022-07-14] MEDS ORDERED: PROPOFOL 20 ML ONE (08:50)
[2022-07-14] MEDS: Senokot S 8.6-50 MG TAB PO SCH ×2 (10:28→21:50)
[2022-07-14] MEDS: Pantoprazole 40 MG VIAL IVP SCH ×2 (10:50→22:52)
[2022-07-14] MEDS ORDERED: Tuberculin PPD 0.1 ML VIAL I-DERMAL SCH ×2 (11:30→12:00)
[2022-07-14] MEDS ORDERED: Epoetin (ESRD) 20,000 UNITS/ML SC SCH (12:00)
[2022-07-14] MEDS: Thiamine 100 MG TAB PO SCH (22:45)
[2022-07-14] MEDS: Acetaminophen 325 MG TAB PO PRN (22:49)
[2022-07-15 04:52] LABS: #Monocytes 0.5 10x3/uL (0.0-1.1); #Neutrophils 2.2 10x3/uL (1.5-8.4); %Eosinophils 0.3 % (0.0-6.0); %Monocytes 17.7 % (0.0-10.0); Hemoglobin 7.1 g/dL (13.5-17.5); Mean Corpuscular HGB CONC 33.5 g/dL (32.0-36.0); Mean Corpuscular Hemoglobin 30.5 pg (27.0-33.0); Mean Platelet Volume 12.4 fl (7.4-10.4); Platelet Count 54 10x3/uL (150-450); RBC Distribution Width 17.1 % (11.5-14.5); Red Blood Cell (RBC) Count 2.33 10x6/uL (4.32-5.72)
[2022-07-15 05:03] LABS: Anion Gap 15 mmol/L (10-20); BUN (Urea Nitrogen) 66 mg/dL (8.4-25.7); Calc. Creatinine Clearance 12 mL/min (70-130); Carbon Dioxide 18 mmol/L (23-31); Chloride 111 mmol/L (98-107); Estimated GFR 10; Glucose 85 mg/dL (83-110); Potassium 3.7 mmol/L (3.5-5.1); Sodium 140 mmol/L (136-145)
[2022-07-15 06:08] LABS: Lymphocytes 15 % (21-51); Monocytes 13 % (0-10)
[2022-07-15 06:18] LABS: Hypochromia SLIGHT = 6-15 cells (100X) (0-5/hpf); Microcytosis SLIGHT = 6-15 cells (100X) (0-5/hpf); Ovalocytes SLIGHT = 2-5 cells (100X) (0-1/hpf); Platelet Morphology Comment Appears Decreased; Poikilocytosis SLIGHT = 6-15 cells (100X) (0-5/hpf); Schistocytes SLIGHT = 2-5 cells (100X) (0-1/hpf); Sickle Cells SLIGHT = 1-5 cells (100X) (None Seen); Stomatocytes SLIGHT = 2-5 cells (100X) (0-1/hpf)
[2022-07-15 06:19] LABS: Neutrophil 72 % (42-75)
[2022-07-15] MEDS: Stress 600 With Zinc 1 TAB PO SCH (09:56)
[2022-07-15] MEDS: Pregabalin 75 MG CAP PO SCH ×2 (09:56→21:00)
[2022-07-15] MEDS: Midodrine HCl 2.5 MG TAB PO SCH ×3 (09:56→18:26)
[2022-07-15] MEDS: Pantoprazole 40 MG VIAL IVP SCH ×2 (09:56→21:00)
[2022-07-15] MEDS: Montelukast Sodium 10 mg Tablet PO SCH (09:56)
[2022-07-15] MEDS: Atorvastatin Calcium 20 MG TAB PO SCH (09:56)
[2022-07-15] MEDS: Senokot S 8.6-50 MG TAB PO SCH ×2 (09:57→21:04)
[2022-07-15] MEDS: Tamsulosin HCl 0.4 MG CAP PO SCH (09:57)
[2022-07-15] MEDS ORDERED: guaiFENesin ER 600 MG TAB PO SCH ×2 (18:35→21:00)
[2022-07-15] MEDS ORDERED: Pantoprazole 40 MG VIAL ONE (20:24)
[2022-07-15] MEDS: guaiFENesin ER 600 MG TAB PO SCH (21:00)
[2022-07-15] MEDS: Thiamine 100 MG TAB PO SCH (21:01)
[2022-07-15 23:00] LABS: Legionella Urinary Ag Negative (Negative); Strep pneumo Urine Ag NEGATIVE (NEGATIVE)
[2022-07-16 05:14] LABS: Anion Gap 17 mmol/L (10-20); BUN (Urea Nitrogen) 72 mg/dL (8.4-25.7); Calc. Creatinine Clearance 11 mL/min (70-130); Calcium 8.2 mg/dL (7.8-10.44); Carbon Dioxide 17 mmol/L (23-31); Chloride 110 mmol/L (98-107); Estimated GFR 9; Glucose 113 mg/dL (83-110); Potassium 3.8 mmol/L (3.5-5.1); Sodium 140 mmol/L (136-145)
[2022-07-16 05:50] LABS: Hemoglobin 7.5 g/dL (13.5-17.5); Mean Corpuscular HGB CONC 33.9 g/dL (32.0-36.0); Mean Corpuscular Hemoglobin 30.7 pg (27.0-33.0); Mean Corpuscular Volume 90.6 fl (81.2-95.1); Mean Platelet Volume 13.4 fl (7.4-10.4); Platelet Count 51 10x3/uL (150-450); RBC Distribution Width 17.2 % (11.5-14.5); Red Blood Cell (RBC) Count 2.44 10x6/uL (4.32-5.72); White Blood Cell (WBC) Count 4.7 10x3/uL (3.5-10.5)
[2022-07-16] MEDS: Midodrine HCl 2.5 MG TAB PO SCH ×3 (06:13→18:33)
[2022-07-16 06:25] LABS: MDiff Complete? YES
[2022-07-16 06:29] LABS: Band 6 % (5-11); Eosinophils 1 % (0-10); Lymphocytes 3 % (21-51); Monocytes 13 % (0-10); Neutrophil 75 % (42-75); Reactive Lymphocytes 2 % (0-10)
[2022-07-16 06:31] LABS: Ovalocytes SLIGHT = 2-5 cells (100X) (0-1/hpf); Platelet Morphology Comment Appears Decreased
[2022-07-16] MEDS ORDERED: Pantoprazole 40 MG VIAL ONE (08:11)
[2022-07-16] MEDS: Senokot S 8.6-50 MG TAB PO SCH ×2 (09:20→21:42)
[2022-07-16] MEDS: guaiFENesin ER 600 MG TAB PO SCH ×2 (09:20→21:18)
[2022-07-16] MEDS: Stress 600 With Zinc 1 TAB PO SCH (09:20)
[2022-07-16] MEDS: Tamsulosin HCl 0.4 MG CAP PO SCH (09:20)
[2022-07-16] MEDS: Montelukast Sodium 10 mg Tablet PO SCH (09:20)
[2022-07-16] MEDS: Atorvastatin Calcium 20 MG TAB PO SCH (09:21)
[2022-07-16] MEDS: Pantoprazole 40 MG VIAL IVP SCH ×2 (09:21→21:17)
[2022-07-16] MEDS: Pregabalin 75 MG CAP PO SCH ×2 (09:24→21:17)
[2022-07-16 10:51] LABS: Iron 21 ug/dL (65-175); Iron Binding Capacity, Total 76 mcg/dL (261-462)
[2022-07-16] MEDS: Thiamine 100 MG TAB PO SCH (21:18)
[2022-07-17 06:09] LABS: Anion Gap 15 mmol/L (10-20); BUN (Urea Nitrogen) 48 mg/dL (8.4-25.7); Calc. Creatinine Clearance 13 mL/min (70-130); Calcium 8.1 mg/dL (7.8-10.44); Carbon Dioxide 22 mmol/L (23-31); Chloride 108 mmol/L (98-107); Estimated GFR 11; Glucose 105 mg/dL (83-110); Sodium 141 mmol/L (136-145)
[2022-07-17] MEDS: Midodrine HCl 2.5 MG TAB PO SCH ×3 (07:21→17:44)
[2022-07-17] MEDS: Pantoprazole 40 MG VIAL IVP SCH ×2 (08:38→20:39)
[2022-07-17] MEDS: Senokot S 8.6-50 MG TAB PO SCH ×2 (08:39→20:39)
[2022-07-17] MEDS: Pregabalin 75 MG CAP PO SCH ×2 (08:39→20:38)
[2022-07-17] MEDS: Stress 600 With Zinc 1 TAB PO SCH (08:40)
[2022-07-17] MEDS: Tamsulosin HCl 0.4 MG CAP PO SCH (08:40)
[2022-07-17] MEDS: Atorvastatin Calcium 20 MG TAB PO SCH (08:40)
[2022-07-17] MEDS: guaiFENesin ER 600 MG TAB PO SCH ×2 (08:40→20:38)
[2022-07-17] MEDS: Montelukast Sodium 10 mg Tablet PO SCH (08:45)
[2022-07-17] MEDS ORDERED: READ PPD TEST SITE PO SCH (09:00)
[2022-07-17] MEDS: Thiamine 100 MG TAB PO SCH (20:38)
[2022-07-18 04:56] LABS: Anion Gap 14 mmol/L (10-20); BUN (Urea Nitrogen) 55 mg/dL (8.4-25.7); Calc. Creatinine Clearance 12 mL/min (70-130); Carbon Dioxide 21 mmol/L (23-31); Chloride 107 mmol/L (98-107); Estimated GFR 9; Glucose 108 mg/dL (83-110); Potassium 3.8 mmol/L (3.5-5.1); Sodium 138 mmol/L (136-145)
[2022-07-18] MEDS: Midodrine HCl 2.5 MG TAB PO SCH ×3 (06:07→17:13)
[2022-07-18] MEDS: Pregabalin 75 MG CAP PO SCH ×2 (08:46→20:37)
[2022-07-18] MEDS: Tamsulosin HCl 0.4 MG CAP PO SCH (08:48)
[2022-07-18] MEDS: Senokot S 8.6-50 MG TAB PO SCH ×2 (08:48→20:38)
[2022-07-18] MEDS: Stress 600 With Zinc 1 TAB PO SCH (08:49)
[2022-07-18] MEDS: Ferrous Sulfate 325 MG TAB PO SCH (08:49)
[2022-07-18] MEDS: guaiFENesin ER 600 MG TAB PO SCH ×2 (08:49→20:38)
[2022-07-18] MEDS: Atorvastatin Calcium 20 MG TAB PO SCH (08:49)
[2022-07-18] MEDS: Montelukast Sodium 10 mg Tablet PO SCH (08:50)
[2022-07-18] MEDS: Pantoprazole 40 MG VIAL IVP SCH ×2 (08:50→20:38)
[2022-07-18] MEDS ORDERED: Activase 2 MG VIAL CATH PRN (12:51)
[2022-07-18 14:36] LABS: #Eosinphils 0.1 10x3/uL (0.0-0.5); #Monocytes 0.6 10x3/uL (0.0-1.1); #Neutrophils 4.2 10x3/uL (1.5-8.4); %Basophils 0.2 % (0.0-2.0); %Eosinophils 2.1 % (0.0-6.0); %Lymphocytes 6.3 % (18.0-47.0); %Monocytes 10.8 % (0.0-10.0); %Neutrophils 79.5 % (40.0-75.0); Hemoglobin 9.4 g/dL (13.5-17.5); Mean Corpuscular HGB CONC 33.9 g/dL (32.0-36.0); Mean Corpuscular Hemoglobin 30.7 pg (27.0-33.0); Mean Corpuscular Volume 90.5 fl (81.2-95.1); Platelet Count 48 10x3/uL (150-450); RBC Distribution Width 17.6 % (11.5-14.5); Red Blood Cell (RBC) Count 3.06 10x6/uL (4.32-5.72); White Blood Cell (WBC) Count 5.3 10x3/uL (3.5-10.5)
[2022-07-18] MEDS: Thiamine 100 MG TAB PO SCH (20:38)
[2022-07-19] MEDS: Midodrine HCl 2.5 MG TAB PO SCH ×2 (05:59→14:12)
[2022-07-19] MEDS: Pregabalin 75 MG CAP PO SCH (10:30)
[2022-07-19] MEDS: Pantoprazole 40 MG VIAL IVP SCH (10:30)
[2022-07-19] MEDS: Tamsulosin HCl 0.4 MG CAP PO SCH (10:30)
[2022-07-19] MEDS: Ferrous Sulfate 325 MG TAB PO SCH (10:30)
[2022-07-19] MEDS: Montelukast Sodium 10 mg Tablet PO SCH (10:30)
[2022-07-19] MEDS: guaiFENesin ER 600 MG TAB PO SCH (10:30)
[2022-07-19] MEDS: Atorvastatin Calcium 20 MG TAB PO SCH (10:30)
[2022-07-19] MEDS: Stress 600 With Zinc 1 TAB PO SCH (10:32)
[2022-07-19] MEDS: Senokot S 8.6-50 MG TAB PO SCH (10:32)
[2022-07-19 17:19] VITALS: BP 103/54; TEMP 99.1
== END 2022-07-19 17:34 | disposition home or self-care (01) | DRG 673 ==
LOC: CSHERS 23:45 → CSHTELE 07-11 01:28
PROVIDERS: ADMIT Family Medicine; ATTEND Internal Medicine
PROC: 0W9G3ZZ Drainage of Peritoneal Cavity, Percutaneous Approach (ICD-10-PCS; 2022-07-11)
PROC: 30233N1 Transfusion of Nonautologous Red Blood Cells into Peripheral Vein, Percutaneous Approach (ICD-10-PCS; 2022-07-11)
PROC: 30233J1 Transfusion of Nonautologous Serum Albumin into Peripheral Vein, Percutaneous Approach (ICD-10-PCS; 2022-07-11)
PROC: 0JH63XZ Insertion of Tunneled Vascular Access Device into Chest Subcutaneous Tissue and Fascia, Percutaneous Approach (ICD-10-PCS; principal; 2022-07-14)
PROC: 02HV33Z Insertion of Infusion Device into Superior Vena Cava, Percutaneous Approach (ICD-10-PCS; 2022-07-14)
PROC: B518YZA Fluoroscopy of Superior Vena Cava using Other Contrast, Guidance (ICD-10-PCS; 2022-07-14)
PROC: 6A550Z3 Pheresis of Plasma, Single (ICD-10-PCS; 2022-07-14)
PROC: 5A1D70Z Performance of Urinary Filtration, Intermittent, Less than 6 Hours Per Day (ICD-10-PCS; 2022-07-14)
DX: I12.0 Hypertensive chronic kidney disease with stage 5 chronic kidney disease or end stage renal disease (principal); K76.7 Hepatorenal syndrome; N18.6 End stage renal disease; D61.818 Other pancytopenia; D68.9 Coagulation defect, unspecified; N13.8 Other obstructive and reflux uropathy; E87.1 Hypo-osmolality and hyponatremia; E87.20 Acidosis, unspecified; N17.9 Acute kidney failure, unspecified; K70.31 Alcoholic cirrhosis of liver with ascites; J44.9 Chronic obstructive pulmonary disease, unspecified; Z96.653 Presence of artificial knee joint, bilateral; Z96.643 Presence of artificial hip joint, bilateral; R73.9 Hyperglycemia, unspecified; R74.8 Abnormal levels of other serum enzymes; L98.429 Non-pressure chronic ulcer of back with unspecified severity; N40.1 Benign prostatic hyperplasia with lower urinary tract symptoms; E88.09 Other disorders of plasma-protein metabolism, not elsewhere classified; E87.5 Hyperkalemia; R05.9 Cough, unspecified; R53.81 Other malaise; Z20.822 Contact with and (suspected) exposure to COVID-19; D63.1 Anemia in chronic kidney disease; K76.0 Fatty (change of) liver, not elsewhere classified; B34.8 Other viral infections of unspecified site; Z87.19 Personal history of other diseases of the digestive system; Z90.49 Acquired absence of other specified parts of digestive tract; Z90.89 Acquired absence of other organs; Z98.890 Other specified postprocedural states; Z87.891 Personal history of nicotine dependence; Z88.8 Allergy status to other drugs, medicaments and biological substances; Z85.810 Personal history of malignant neoplasm of tongue; Z79.899 Other long term (current) drug therapy; Z79.82 Long term (current) use of aspirin
CPT/HCPCS: 36415; 36416; 36430; 49083; 71045; 76700; 80048; 80053; 81001; 82728; 83540; 83550; 83735; 85025; 85610; 85730; 86580; 86704; 86850; 86900; 86901; 87040; 87070; 87086; 87205; 87340; 87449; 87633; 87811; 87899; 89051; 90935; 94760; 96365; 96375; 97139; C1752; C9113; G0257; J0171; J0690; J1642; J2354; J2704; J3010; J7050; P9016; P9035; P9047; Q4081; S0020; U0003; U0005

== ENCOUNTER → 2022-07-23 | Day surgery (SDC) | payer MEDICARE ==
[~2022-07-23] MED LIST changes: +Albumin 25% 0 ML ONE; -Albumin 25% 100 ML ONE
== END ==
LOC: CSHULT 10:51
PROVIDERS: ATTEND Internal Medicine Gastroenterology
PROC: 0W9G3ZZ Drainage of Peritoneal Cavity, Percutaneous Approach (ICD-10-PCS; principal; 2022-07-23)
DX: R18.8 Other ascites (principal)
CPT/HCPCS: 49083; P9047

== ENCOUNTER → 2022-08-06 | Day surgery (SDC) | payer MEDICARE ==
[~2022-08-06] MED LIST changes: -Albumin 25% 0 ML ONE; +Albumin 25% 100 ML ONE
[2022-08-06 10:49] VITALS: BP 145/67; TEMP 98.2
== END ==
LOC: CSHULT 10:17
PROVIDERS: ATTEND Internal Medicine Gastroenterology
DX: R18.8 Other ascites (principal)
CPT/HCPCS: 49083; P9047

== ENCOUNTER 2022-08-21 10:04 | Day surgery (SDC) | payer MEDICARE ==
[2022-08-21 10:59] LABS: #Monocytes 0.6 10x3/uL (0.0-1.1); #Neutrophils 5.4 10x3/uL (1.5-8.4); %Lymphocytes 3.2 % (18.0-47.0); %Monocytes 9.6 % (0.0-10.0); %Neutrophils 86.7 % (40.0-75.0); Hemoglobin 9.1 g/dL (13.5-17.5); Mean Corpuscular HGB CONC 33.2 g/dL (32.0-36.0); Mean Corpuscular Hemoglobin 31.8 pg (27.0-33.0); Mean Corpuscular Volume 95.8 fl (81.2-95.1); Mean Platelet Volume 13.2 fl (7.4-10.4); Platelet Count 41 10x3/uL (150-450); RBC Distribution Width 18.9 % (11.5-14.5); Red Blood Cell (RBC) Count 2.86 10x6/uL (4.32-5.72); White Blood Cell (WBC) Count 6.2 10x3/uL (3.5-10.5)
[2022-08-21 11:02] LABS: INR-International Normal Ratio 1.2; PTT 31.3 sec (22.0-33.0); Prothrombin Time 12.9 sec (9.5-12.1)
[2022-08-21 12:22] VITALS: BP 149/58; TEMP 97.3
== END 2022-08-21 12:39 | disposition home or self-care (01) ==
LOC: CSHULT 10:04
PROVIDERS: ATTEND Internal Medicine Gastroenterology
PROC: 0W9G3ZZ Drainage of Peritoneal Cavity, Percutaneous Approach (ICD-10-PCS; principal; 2022-08-21)
DX: R18.8 Other ascites (principal)
CPT/HCPCS: 49083; 70450; 71045; 80053; 82140; 82550; 83690; 84484; 85025 ×2; 85610 ×2; 85730 ×2; 93005; U0003; U0005; 36415

== ENCOUNTER 2022-08-31 04:59 | Emergency (ER) | payer MEDICARE ==
[2022-08-31 05:45] LABS: Hemoglobin 8.4 g/dL (13.5-17.5); Mean Corpuscular HGB CONC 32.7 g/dL (32.0-36.0); Mean Corpuscular Hemoglobin 32.2 pg (27.0-33.0); Mean Corpuscular Volume 98.5 fl (81.2-95.1); Mean Platelet Volume 11.9 fl (7.4-10.4); Platelet Count 61 10x3/uL (150-450); RBC Distribution Width 17.7 % (11.5-14.5); Red Blood Cell (RBC) Count 2.61 10x6/uL (4.32-5.72); White Blood Cell (WBC) Count 4.2 10x3/uL (3.5-10.5)
[2022-08-31 05:50] LABS: INR-International Normal Ratio 1.3; PTT 31.8 sec (22.0-33.0); Prothrombin Time 13.6 sec (9.5-12.1)
[2022-08-31 05:51] LABS: ALT (SGPT) 40 U/L (8-55); AST (SGOT) 68 U/L (5-34); Albumin 2.4 g/dL (3.4-4.8); Alkaline Phosphatase 237 U/L (40-110); Anion Gap 16 mmol/L (10-20); BUN (Urea Nitrogen) 30 mg/dL (8.4-25.7); Bilirubin, Total 0.9 mg/dL (0.2-1.2); Calc. Creatinine Clearance 0 mL/min (70-130); Calcium 7.4 mg/dL (7.8-10.44); Carbon Dioxide 22 mmol/L (23-31); Chloride 103 mmol/L (98-107); Estimated GFR 13; Globulin 2.2 g/dL (2.4-3.5); Glucose 122 mg/dL (83-110); MDiff Complete? YES; Potassium 3.1 mmol/L (3.5-5.1); Protein, Total 4.6 g/dL (5.8-8.1); Sodium 138 mmol/L (136-145)
[2022-08-31 06:22] LABS: Band 1 % (5-11); Eosinophils 1 % (0-10); Lymphocytes 11 % (21-51); Monocytes 18 % (0-10); Neutrophil 69 % (42-75)
[2022-08-31 06:24] LABS: Anisocytosis SLIGHT = 6-15 cells (100X) (0-5/hpf); Elliptocytes SLIGHT = 2-5 cells (100X) (0-1/hpf); Platelet Morphology Comment Appears Decreased; Schistocytes SLIGHT = 2-5 cells (100X) (0-1/hpf)
[2022-08-31] MEDS ORDERED: Albumin 25% 100 ML ONE ×2 (10:53)
[2022-08-31] MEDS ORDERED: Lidocaine 1% PF 5 ML VIAL ONE (11:05)
[2022-08-31] MEDS ORDERED: Sodium Bicarbonate 2.5 MEQ/5 ML VIAL ONE (11:06)
== END 2022-08-31 12:25 | disposition home or self-care (01) ==
LOC: CSHERS 04:59
DX: K72.00 Acute and subacute hepatic failure without coma (principal); K72.10 Chronic hepatic failure without coma; R18.8 Other ascites; J44.9 Chronic obstructive pulmonary disease, unspecified; Z79.899 Other long term (current) drug therapy
CPT/HCPCS: 49083; 80053; 85025; 85610; 85730; 93005; 99284; P9047

== ENCOUNTER → 2022-09-05 | Day surgery (SDC) | payer MEDICARE ==
[2022-09-05 10:35] VITALS: TEMP 98
== END ==
LOC: CSHULT 08:19
PROVIDERS: ATTEND Internal Medicine Gastroenterology
PROC: 0W9G3ZX Drainage of Peritoneal Cavity, Percutaneous Approach, Diagnostic (ICD-10-PCS; principal; 2022-09-05)
DX: R18.8 Other ascites (principal)
CPT/HCPCS: 49083; P9047

== ENCOUNTER 2022-09-10 11:02 | Day surgery (SDC) | payer MEDICARE ==
[2022-09-10] MEDS ORDERED: Sodium Bicarbonate 2.5 MEQ/5 ML VIAL ONE (12:23)
[2022-09-10] MEDS ORDERED: Lidocaine 1% PF 5 ML VIAL ONE (12:23)
[2022-09-10 13:10] VITALS: BP 119/59
[2022-09-10] MEDS ORDERED: Albumin 25% 100 ML ONE ×2 (13:24→13:57)
[2022-09-10] MEDS ORDERED: FLU VACC QS2022-23(65YR UP)/PF 240 MCG/0.7 ML SYRINGE IM ONE (13:30)
== END 2022-09-10 14:10 | disposition home or self-care (01) ==
LOC: CSHULT 11:02
PROVIDERS: ATTEND Internal Medicine Gastroenterology
PROC: 0W9G3ZZ Drainage of Peritoneal Cavity, Percutaneous Approach (ICD-10-PCS; principal; 2022-09-10)
DX: K70.31 Alcoholic cirrhosis of liver with ascites (principal)
CPT/HCPCS: 49083; P9047